=== PATIENT | male | born 1935 | race Caucasian/White ===

== ENCOUNTER 2022-03-15 03:13 | Inpatient (IN) ==
[2022-03-15] MEDS ORDERED: Naloxone 0.4 MG/ML INJ IVP PRN (10:01)
[2022-03-15] MEDS ORDERED: Dexamethasone Sodium Phos/PF 10 MG/ML VIAL IVP ONE (10:21)
[2022-03-15] MEDS: Gabapentin 400 MG CAPSULE PO SCH ×2 (10:36→22:50)
[2022-03-15] MEDS: Finasteride 5 MG TABLET PO SCH (10:37)
[2022-03-15 12:59] LABS: C-Reactive Protein 132 mg/L (Less than 10)
[2022-03-15 13:18] LABS: Ferritin > 1500 ng/mL (20-250)
[2022-03-15] MEDS ORDERED: Iopamidol - 370 500 ML MLS IVP ONE (17:38)
[2022-03-15] MEDS ORDERED: 0.9 % Sodium Chloride 1,000 ML IVC SCH (17:45)
[2022-03-15] MEDS: Budesonide/Formoterol 160/4.5 1 PUFF INH IH SCH (19:45)
[2022-03-15] MEDS ORDERED: *HR* Heparin 5,000 UNIT/ML VIAL SQ SCH (22:00)
[2022-03-15] MEDS: cefTRIAXone 1,000 MG in 0.9 % Sodium Chloride Mini Bag 100 ML IVPB SCH (22:35)
[2022-03-15] MEDS: Azithromycin 500 MG in 0.9 % Sodium Chloride 250 ML IVPB SCH (23:10)
[2022-03-16 07:52] LABS: Basophils % 0.1 %; Eosinophils % 0.1 %; Hemoglobin 9.7 g/dL (12.9-16.9); Immature Granulocytes % 2.2 % (0-4); Lymphocytes # 1.6 K/mcL (0.6-4.6); Mean Corpuscular HGB Conc 33.4 g/dL (31.6-35.5); Mean Corpuscular Hemoglobin 31.4 pg (28.0-33.3); Mean Corpuscular Volume 93.9 fL (83.0-100.0); Mean Platelet Volume 9.8 fL (9.4-12.4); Monocytes # 0.5 K/mcL (0.0-1.3); Monocytes % 6.9 %; Neutrophils # 5.5 K/mcL (1.6-8.9); Red Blood Count 3.09 M/mcL (4.19-5.50); Red Cell Distribution Width 17.5 % (11.5-14.5); Segmented Neutrophils % 69.7 %; White Blood Count 7.8 K/mcL (4.3-11.1)
[2022-03-16 07:57] LABS: Platelet Count 98 K/mcL (140-400)
[2022-03-16] MEDS: Finasteride 5 MG TABLET PO SCH (08:05)
[2022-03-16] MEDS: Gabapentin 400 MG CAPSULE PO SCH ×2 (08:05→21:38)
[2022-03-16] MEDS: Dexamethasone Sodium Phos/PF 10 MG/ML VIAL IVP SCH (08:05)
[2022-03-16 08:33] LABS: Calcium 7.7 mg/dL (8.6-10.3); Magnesium 1.9 mg/dL (1.6-2.6); Potassium 3.6 mEq/L (3.5-5.1)
[2022-03-16 08:58] LABS: % Iron Saturation 45 % (20-55); Iron 48 mcg/dL (65-175); Transferrin 77 mg/dL (203-362)
[2022-03-16 09:23] LABS: Folate 5.9 ng/mL (3.0-16.0)
[2022-03-16 10:22] LABS: Platelet Estimate Decreased (Normal)
[2022-03-16] MEDS: Budesonide/Formoterol 160/4.5 1 PUFF INH IH SCH ×2 (10:27→22:11)
[2022-03-16] MEDS: *HR* Enoxaparin 40 MG/0.4 ML SYRINGE SQ SCH (19:37)
[2022-03-16] MEDS: cefTRIAXone 1,000 MG in 0.9 % Sodium Chloride Mini Bag 100 ML IVPB SCH (21:10)
[2022-03-16] MEDS: Azithromycin 500 MG in 0.9 % Sodium Chloride 250 ML IVPB SCH (21:56)
[2022-03-17] MEDS: *HR* Enoxaparin 40 MG/0.4 ML SYRINGE SQ SCH (06:19)
[2022-03-17 07:56] LABS: Hematocrit 28.7 % (37.5-50.1); Hemoglobin 9.5 g/dL (12.9-16.9); Mean Corpuscular HGB Conc 33.1 g/dL (31.6-35.5); Mean Corpuscular Hemoglobin 31.8 pg (28.0-33.3); Mean Platelet Volume 9.4 fL (9.4-12.4); Red Blood Count 2.99 M/mcL (4.19-5.50); Red Cell Distribution Width 17.5 % (11.5-14.5); White Blood Count 7.9 K/mcL (4.3-11.1)
[2022-03-17 08:03] LABS: Platelet Count 94 K/mcL (140-400)
[2022-03-17 08:27] LABS: Calcium 7.6 mg/dL (8.6-10.3); Magnesium 1.8 mg/dL (1.6-2.6); Potassium 3.9 mEq/L (3.5-5.1)
[2022-03-17] MEDS: Dexamethasone Sodium Phos/PF 10 MG/ML VIAL IVP SCH (09:04)
[2022-03-17] MEDS: Finasteride 5 MG TABLET PO SCH (09:04)
[2022-03-17] MEDS: Gabapentin 400 MG CAPSULE PO SCH ×2 (09:04→20:21)
[2022-03-17] MEDS: Budesonide/Formoterol 160/4.5 1 PUFF INH IH SCH ×2 (09:56→21:21)
[2022-03-17] MEDS: cefTRIAXone 1,000 MG in 0.9 % Sodium Chloride Mini Bag 100 ML IVPB SCH (20:21)
[2022-03-17] MEDS: Azithromycin 500 MG in 0.9 % Sodium Chloride 250 ML IVPB SCH (21:05)
[2022-03-18] MEDS: *HR* Enoxaparin 40 MG/0.4 ML SYRINGE SQ SCH (05:01)
[2022-03-18 08:07] LABS: Basophils % 0.2 %; Hemoglobin 8.8 g/dL (12.9-16.9); Immature Granulocytes % 4.4 % (0-4); Lymphocytes # 1.6 K/mcL (0.6-4.6); Lymphocytes % 19.5 %; Mean Corpuscular HGB Conc 32.6 g/dL (31.6-35.5); Mean Corpuscular Hemoglobin 30.9 pg (28.0-33.3); Mean Corpuscular Volume 94.7 fL (83.0-100.0); Mean Platelet Volume 9.2 fL (9.4-12.4); Monocytes # 0.6 K/mcL (0.0-1.3); Monocytes % 6.9 %; Neutrophils # 5.7 K/mcL (1.6-8.9); Red Blood Count 2.85 M/mcL (4.19-5.50); Red Cell Distribution Width 17.2 % (11.5-14.5); White Blood Count 8.3 K/mcL (4.3-11.1)
[2022-03-18 08:09] LABS: Platelet Count 86 K/mcL (140-400)
[2022-03-18 08:22] LABS: Magnesium 1.8 mg/dL (1.6-2.6)
[2022-03-18 08:23] LABS: Calcium 7.6 mg/dL (8.6-10.3); Potassium 4.1 mEq/L (3.5-5.1)
[2022-03-18] MEDS: Dexamethasone Sodium Phos/PF 10 MG/ML VIAL IVP SCH (09:08)
[2022-03-18] MEDS: Finasteride 5 MG TABLET PO SCH (09:15)
[2022-03-18] MEDS: Gabapentin 400 MG CAPSULE PO SCH ×2 (09:15→20:10)
[2022-03-18] MEDS: Budesonide/Formoterol 160/4.5 1 PUFF INH IH SCH ×2 (09:43→21:17)
[2022-03-18 13:11] LABS: Ferritin > 1500 ng/mL (20-250)
[2022-03-18] MEDS: *HR* Enoxaparin 80 MG/0.8 ML SYRINGE SQ SCH (18:32)
[2022-03-18] MEDS: cefTRIAXone 1,000 MG in 0.9 % Sodium Chloride Mini Bag 100 ML IVPB SCH (20:13)
[2022-03-18] MEDS: Azithromycin 500 MG in 0.9 % Sodium Chloride 250 ML IVPB SCH (20:16)
[2022-03-18 23:00] VITALS: RESP 18
[2022-03-19] MEDS: *HR* Enoxaparin 80 MG/0.8 ML SYRINGE SQ SCH ×2 (06:27→17:46)
[2022-03-19 07:31] VITALS: TEMP 98.4
[2022-03-19] MEDS: Budesonide/Formoterol 160/4.5 1 PUFF INH IH SCH (08:14)
[2022-03-19] MEDS: Gabapentin 400 MG CAPSULE PO SCH (11:10)
[2022-03-19] MEDS: Finasteride 5 MG TABLET PO SCH (11:11)
[2022-03-19] MEDS: Dexamethasone Sodium Phos/PF 10 MG/ML VIAL IVP SCH (11:55)
[2022-03-19 13:01] LABS: Hematocrit 32.4 % (37.5-50.1); Hemoglobin 10.7 g/dL (12.9-16.9); Mean Corpuscular Hemoglobin 31.2 pg (28.0-33.3); Mean Corpuscular Volume 94.5 fL (83.0-100.0); Mean Platelet Volume 11.1 fL (9.4-12.4); Platelet Count 101 K/mcL (140-400); Red Blood Count 3.43 M/mcL (4.19-5.50); Red Cell Distribution Width 17.8 % (11.5-14.5); White Blood Count 17.3 K/mcL (4.3-11.1)
[2022-03-19 13:18] LABS: Albumin 2.6 g/dL (3.5-5.7); Calcium 8.1 mg/dL (8.6-10.3); Globulin 2.7 g/dL (2.4-3.5); Magnesium 1.9 mg/dL (1.6-2.6); Potassium 4.5 mEq/L (3.5-5.1); Total Protein 5.3 g/dL (6.4-8.9)
[2022-03-19 19:28] VITALS: BP 144/65; PULSE 88; O2SAT 94
[2022-03-20 12:32] LABS: Testosterone,Total 100 ng/dL (280-1100)
[2022-03-20 13:31] LABS: Prostate Specific Antigen > 1420.00 ng/mL (Less than 4.00)
== END 2022-03-19 21:10 | disposition short-term general hospital (02) | DRG 177 ==
LOC: INPPIK
PROVIDERS: ADMIT Internal Medicine; ATTEND Family Medicine